=== PATIENT | female | born 1960 | race Caucasian/White ===

== ENCOUNTER 2021-11-30 18:43 | Observation (INO) ==
[2021-11-30 20:47] LABS: Basophils # (auto) 0.03 K/uL (0-0.2); Basophils % (auto) 0.3 %; Eosinophils # (auto) 0.07 K/uL (0-0.5); Eosinophils % (auto) 0.8 %; Hematocrit (blood only) 35.7 % (37-47); Hemoglobin 12.5 g/dL (12.0-16.0); Immature Granulocytes # (auto) 0.01 K/uL (0.00-0.02); Immature Granulocytes % (auto) 0.1 %; Lymphocytes # (auto) 2.77 K/uL (1.2-3.4); Lymphocytes % (auto) 30.7 %; Mean Corpuscular Hemoglobin 30.7 pg (25-34); Mean Corpuscular Volume 87.7 fL (80-100); Mean Platelet Volume 9.1 fL (7.4-10.4); Monocytes # (auto) 0.95 K/uL (0.11-0.59); Monocytes % (auto) 10.5 %; Neutrophils # (auto) 5.19 K/uL (1.4-6.5); Neutrophils % (auto) 57.6 %; Platelet Count 442 K/uL (130-400); RDW Coefficient of Variation 12.9 % (11.5-14.5); RDW Standard Deviation 42.1 fL (36.4-46.3); Red Blood Count 4.07 M/uL (4.2-5.4); White Blood Count 9.02 K/uL (4.8-10.8)
[2021-11-30 21:01] LABS: Appearance Urine Clear (Clear); Bilirubin Urine Negative (Negative); Blood Urine Negative (Negative); Color Urine Yellow; Glucose Urine UA Negative (Negative); Ketones Urine Negative (Negative); Leukocyte Esterase Urine Negative (Negative); Nitrite Urine Negative (Negative); Protein Urine Negative (Negative); Specific Gravity Urine 1.005 (1.000-1.030); Urobilinogen Urine Negative (Negative)
[2021-11-30 21:16] LABS: Albumin Globulin Ratio 1.3 (0.9-2); Albumin Level 4.4 gm/dl (3.4-5.0); BUN Creatinine Ratio 9.3 (10-20); Bilirubin,Total 0.4 mg/dl (0.2-1.0); Calcium 10.1 mg/dl (8.5-10.1); Creatinine Clr Calc Pharmacy 61.7 ml/min; Est GFR (African American) 85.1 ml/min; Est GFR (Non-African American) 73.4 ml/min; Globulin 3.4 gm/dl (2.5-4.0); Potassium 4.1 mmol/L (3.5-5.1); Total Protein 7.8 gm/dl (6.0-8.3)
[2021-11-30] MEDS ORDERED: ONDANSETRON INJ 2 MG/ML 2 ML VIAL IV STA (22:10)
[2021-11-30] MEDS ORDERED: SODIUM CHLORIDE 0.9% 1000ML 1,000 ML IV ONE (22:10)
[2021-11-30] MEDS ORDERED: DICYCLOMINE HCL 10 MG/ML 2 ML AMP/VIAL IM ONE (22:10)
[2021-11-30] MEDS ORDERED: LACTULOSE SYRUP 20 GM/30 ML UDC PO STA (22:37)
[2021-11-30] MEDS ORDERED: DOCUSATE SODIUM/SENNA 50/8.6MG TAB PO STA (22:37)
[2021-11-30 23:20] LABS: Magnesium 2.2 mg/dl (1.7-2.4)
--- NOTE | 2021-12-01 00:05 | Emergency Department Note ---
History of Present Illness General Chief complaint: Constipation Stated complaint: ABDOM PAIN, CONSTIPATION FOR 1 WEEK Time Seen by Provider: 11/30/21 22:03 History of Present Illness Maximum Pain Intensity: 4 This 61-year-old presents to the ER complaining of worsening abdominal pain who has been seen 3 times this week Location: Abdomen Quality: Painful Severity: Bloated Duration: Past week Timing: Started a week ago Context: Patient was concerned and came in Modifying factors: better with rest; worse with activity Patient states she drank part of the magnesium citrate I gave her yesterday but the abdominal pain got worse. She then called in for telehealth and was advised not to take the 80s and saturating more to try MiraLAX. She is had very little output. The pain is gotten worse. Patient denies chest pain, dyspnea, fevers, flulike illness. She had 2 CAT scans this week. Home Medications Medication Instructions Recorded Confirmed Type latanoprost 0.005 % eye drops 1 drops OPL QPM 05/24/19 11/30/21 History levothyroxine 88 mcg tablet 88 mcg PO DAILY 05/24/19 11/30/21 History Allergies Allergy/AdvReac Type Severity Reaction Status Date / Time Penicillins Allergy Verified 11/30/21 21:19 Sulfa (Sulfonamide AdvReac Hives Verified 11/30/21 21:19 Antibiotics) Past Med/Surg History Medical History History of malignant melanoma of skin Hx of glaucoma Hypothyroidism Surgical History No pertinent past surgical history Social History Smoking Status: Never smoker Preferred Language: Czech Feels Safe at Home: Yes Review of Systems A total of 10 systems reviewed and were otherwise negative Physical Exam Vital Signs Vital Signs - 24 hr 11/30/21 19:09 11/30/21 20:59 11/30/21 22:00 Temperature 36.2 C L Temperature Source Temporal Artery Scan Pulse Rate 84 Pulse Rate [Left Finger] 81 78 Pulse Rhythm Regular Pulse Strength Normal Respiratory Rate 18 18 17 Respiratory Effort / Characteristics Non-Labored Spontaneous Respiratory Depth Normal Respiratory Pattern Regular Blood Pressure 125/89 Blood Pressure [Left Arm] 141/99 H 147/81 H Blood Pressure Mean 101 Blood Pressure Mean [Left Arm] 113 103 Blood Pressure Position Sitting Pulse Oximetry 98 99 99 Oxygen Delivery Method Room Air Room Air Room Air Sepsis Recent Fever Within 48 Hours No Sepsis New/Unexplained Change in Mental Status N/A Sepsis Action Taken by Nursing No Action Required 11/30/21 23:18 12/01/21 00:59 Temperature Temperature Source Pulse Rate Pulse Rate [Left Finger] 80 74 Pulse Rhythm Pulse Strength Respiratory Rate 20 20 Respiratory Effort / Characteristics Respiratory Depth Respiratory Pattern Blood Pressure Blood Pressure [Left Arm] 147/81 H 133/86 Blood Pressure Mean Blood Pressure Mean [Left Arm] 103 101 Blood Pressure Position Pulse Oximetry 99 98 Oxygen Delivery Method Room Air Room Air Sepsis Recent Fever Within 48 Hours Sepsis New/Unexplained Change in Mental Status Sepsis Action Taken by Nursing VITALS: Vitals are noted on the nurse's note and reviewed by myself. Vital signs stable. GENERAL: Pleasant female, in no acute distress, nondiaphoretic, well-developed well-nourished. SKIN: The skin was without rashes, erythema, edema, or bruising. There is no tenting of the skin. Capillary reflex less than 2 seconds. HEAD: Normocephalic atraumatic. EARS: External auditory canals clear, EYES: Pupils equal round and reactive to light and accommodation. Conjunctivae without injection, sclerae without icterus. Extraocular movements intact. NOSE: Patent, turbinates without inflammation or discharge. MOUTH: Mucous membranes moist. Pharynx without erythema or exudate. Uvula midline. Airway patent. Tongue does not deviate. NECK: Supple without nuchal rigidity. No lymphadenopathy. No thyromegaly. Cervical spine is nontender. No JVD. HEART: Regular rate and rhythm LUNGS: Clear to auscultation bilaterally without wheezes, rales or rhonchi. No retractions or accessory muscle use. ABDOMEN: Positive bowel sounds x 4. Normal tympanic percussion. Soft, diffusely tender to palpation with increased pain left lower quadrant, without masses or organomegaly. Potter sign negative. No guarding or rebound tenderness. No CVA tenderness MUSCULOSKELETAL: No muscle atrophy, erythema, or edema noted. NEURO: Patient was alert and oriented to person place and time. Normal sensati on to light and sharp touch. No focal neurological deficits. Course Administered Medications Discontinued Medications Dicyclomine HCl (Dicyclomine Hcl 10 Mg/Ml 2 Ml Amp/Vial) 20 mg IM NOW ONE Stop: 11/30/21 22:11 Last Admin: 11/30/21 22:25 Dose: 20 mg Documented by: [id number] Sodium Chloride (Nss 1000ml) 1,000 mls @ 999 mls/hr IV .Q1H1M ONE Stop: 11/30/21 23:10 Last Infusion: 11/30/21 23:25 Dose: 0 mls/hr Documented by: [id number] Admin: 11/30/21 22:26 Dose: 999 mls/hr Documented by: [id number] Lactulose (Lactulose Syrup 20 Gm/30 Ml Udc) 30 gm PO NOW STA Stop: 11/30/21 22:38 Last Admin: 11/30/21 23:16 Dose: 30 gm Documented by: [id number] Ondansetron HCl (Ondansetron Inj 2 Mg/Ml 2 Ml Vial) 4 mg IV NOW STA Stop: 11/30/21 22:11 Last Admin: 11/30/21 22:25 Dose: 4 mg Documented by: [id number] Senna/Docusate Sodium (Docusate Sodium/Senna 50/8.6mg Tab) 1 tab PO NOW STA Stop: 11/30/21 22:38 Last Admin: 11/30/21 23:16 Dose: 1 tab Documented by: [id number] Medical Decision Making Medical Records Attestation: I reviewed the patient's medical records. Home Medications Current Medication List: was personally reviewed by me Laboratory Data Attestation: I reviewed the patient's lab results. Result diagrams: 11/30/21 20:25 11/30/21 20:25 Lab Results 11/30/21 11/30/21 11/30/21 Range/Units 19:52 20:25 20:25 WBC 9.02 (4.8-10.8) K/uL RBC 4.07 L (4.2-5.4) M/uL Hgb 12.5 (12.0-16.0) g/dL Hct 35.7 L (37-47) % MCV 87.7 (80-100) fL MCH 30.7 (25-34) pg MCHC 35.0 (32-36) g/dL RDW Std Deviation 42.1 (36.4-46.3) fL RDW Coeff of Nahid 12.9 (11.5-14.5) % Plt Count 442 H (130-400) K/uL MPV 9.1 (7.4-10.4) fL Immature Gran % (Auto) 0.1 % Neut % (Auto) 57.6 % Lymph % (Auto) 30.7 % [place] % (Auto) 10.5 % Eos % (Auto) 0.8 % Baso % (Auto) 0.3 % Neut # (Auto) 5.19 (1.4-6.5) K/uL Lymph # (Auto) 2.77 (1.2-3.4) K/uL [place] # (Auto) 0.95 H (0.11-0.59) K/uL Eos # (Auto) 0.07 (0-0.5) K/uL Baso # (Auto) 0.03 (0-0.2) K/uL Immature Gran # (Auto) 0.01 (0.00-0.02) K/uL Sodium 133 L (136-145) mmol/L Potassium 4.1 (3.5-5.1) mmol/L Chloride 97 L (98-107) mmol/L Carbon Dioxide 26 (21-32) mmol/L Anion Gap 10 (3-11) BUN 8 (6-23) mg/dl Creatinine 0.86 (0.6-1.2) mg/dl Est Cr Clr Drug Dosing 61.7 ml/min Est GFR ( Amer) 85.1 ml/min Est GFR (Non-Af Amer) 73.4 ml/min BUN/Creatinine Ratio 9.3 L (10-20) Glucose 92 (70-99(Fasting)) mg/dl Calcium 10.1 (8.5-10.1) mg/dl Magnesium 2.2 (1.7-2.4) mg/dl Total Bilirubin 0.4 (0.2-1.0) mg/dl AST 12 L (13-39) U/L ALT 11 (7-52) U/L Alkaline Phosphatase 112 H (34-104) U/L Total Protein 7.8 (6.0-8.3) gm/dl Albumin 4.4 (3.4-5.0) gm/dl Globulin 3.4 (2.5-4.0) gm/dl Albumin/Globulin Ratio 1.3 (0.9-2) Lipase 8 L (11-82) U/L Urine Color Yellow Urine Appearance Clear (Clear) Urine pH 5.0 (4.5-7.5) Ur Specific [place] 1.005 (1.000-1.030) Urine Protein Negative (Negative) Urine Glucose (UA) Negative (Negative) Urine Ketones Negative (Negative) Urine Blood Negative (Negative) Urine Nitrite Negative (Negative) Urine Bilirubin Negative (Negative) Urine Urobilinogen Negative (Negative) Ur Leukocyte Esterase Negative (Negative) SARS-CoV-2, RNA, NAAT (NEGATIVE) 11/30/21 Range/Units 22:36 WBC (4.8-10.8) K/uL RBC (4.2-5.4) M/uL Hgb (12.0-16.0) g/dL Hct (37-47) % MCV (80-100) fL MCH (25-34) pg MCHC (32-36) g/dL RDW Std Deviation (36.4-46.3) fL RDW Coeff of Nahid (11.5-14.5) % Plt Count (130-400) K/uL MPV (7.4-10.4) fL Immature Gran % (Auto) % Neut % (Auto) % Lymph % (Auto) % [place] % (Auto) % Eos % (Auto) % Baso % (Auto) % Neut # (Auto) (1.4-6.5) K/uL Lymph # (Auto) (1.2-3.4) K/uL [place] # (Auto) (0.11-0.59) K/uL Eos # (Auto) (0-0.5) K/uL Baso # (Auto) (0-0.2) K/uL Immature Gran # (Auto) (0.00-0.02) K/uL Sodium (136-145) mmol/L Potassium (3.5-5.1) mmol/L Chloride (98-107) mmol/L Carbon Dioxide (21-32) mmol/L Anion Gap (3-11) BUN (6-23) mg/dl Creatinine (0.6-1.2) mg/dl Est Cr Clr Drug Dosing ml/min Est GFR ( Amer) ml/min Est GFR (Non-Af Amer) ml/min BUN/Creatinine Ratio (10-20) Glucose (70-99(Fasting)) mg/dl Calcium (8.5-10.1) mg/dl Magnesium (1.7-2.4) mg/dl Total Bilirubin (0.2-1.0) mg/dl AST (13-39) U/L ALT (7-52) U/L Alkaline Phosphatase (34-104) U/L Total Protein (6.0-8.3) gm/dl Albumin (3.4-5.0) gm/dl Globulin (2.5-4.0) gm/dl Albumin/Globulin Ratio (0.9-2) Lipase (11-82) U/L Urine Color Urine Appearance (Clear) Urine pH (4.5-7.5) Ur Specific [place] (1.000-1.030) Urine Protein (Negative) Urine Glucose (UA) (Negative) Urine Ketones (Negative) Urine Blood (Negative) Urine Nitrite (Negative) Urine Bilirubin (Negative) Urine Urobilinogen (Negative) Ur Leukocyte Esterase (Negative) SARS-CoV-2, RNA, NAAT NEGATIVE (NEGATIVE) Imaging Data Attestation: I personally reviewed and interpreted this imaging study as follows: Radiologist's Impression: Renal Ultrasound 11/30/21 22:12 ULTRASOUND KIDNEYS AND BLADDER CLINICAL HISTORY: Left lower quadrant abdominal pain. COMPARISON STUDY: Abdominal CT dated 11/29/2021. TECHNIQUE: Real-time, grayscale, and color flow sonography of the kidneys and bladder is performed. Images are reviewed in the transverse and longitudinal pl anes. FINDINGS: Kidneys: The kidneys are normal in size and echotexture. The right kidney measures 10.2 x 4.0 x 4.3 cm and the left kidney measures 10.7 x 4.5 x 5.2 cm. There is no hydronephrosis. No shadowing renal calculi are identified. There is no sonographic evidence of contour deforming renal mass lesion. No perinephric fluid is identified. Bladder: The bladder is normal in appearance. Bilateral ureteral jets were seen. IMPRESSION: Unremarkable sonographic assessment of the kidneys and bladder. ACT 112: Negative or not required by law. Electronically signed by: Nash Beltre M.D. 12/01/2021 12:21 AM [facility] Narrative Prior records/ancillary studies reviewed. Triage Nursing notes reviewed. Additional history obtained from nursing. The patient's history was concerning for abdominal pain. Differential diagnosis: Etiologies such as appendicitis, diverticulitis, PUD, biliary pathology, UTI, pancreatitis, obstruction, mesenteric ischemia, aortic pathology, infections, i nflammatory bowel disease, renal colic, as well as others were entertained. Physical examination findings: As above. ER treatment provided: An order was placed for continuous cardiac monitoring. The monitor shows a rate of 60-100 with a sinus rhythm. Fluids Tylenol Bentyl On reassessment the patient felt better. Diagnostics interpreted by me: The labs revealed no worrisome leukocytosis Negative urine Imaging studies: As above Consultation: A consultation was placed with the hospitalist. The case was discussed and diagnostics were reviewed. The patient was evaluated in the ER for further treatment. Exam and history seem consistent with showing worsening abdominal pain. Patient would like to stay for admission. Medicine was consulted. She will be admitted. She had 2 CAT scans this week that were negative. Ultrasound was negative. Stable labs. I felt was reasonable not to repeat the CAT scan for the third time. By the evaluation outlined above emergent etiologies such as appendicitis, diverticulitis, PUD, biliary pathology, UTI, pancreatitis, obstruction, mesenteric ischemia, aortic pathology, infections, inflammatory bowel disease, renal colic, as well as others were deemed relatively unlikely. The pt informed about the findings as listed above. All questions were answered and pleased with the treatment. The chart was completed utilizing [employer] Speech voice recognition software. Grammatical errors, random word insertions, pronoun errors, and incomplete sentences are an occassional consequence of this system due to software limitati ons, ambient noise, and hardware issues. Any formal questions or concerns about the content, text, or information contained within the body of this dictation should be directly addressed to the physician training program assistant for clarification. Impression & Plan Acute abdominal pain Discharge Plan Visit Data Chief Complaint: Constipation Stated Complaint: ABDOM PAIN, CONSTIPATION FOR 1 WEEK ED Provider: Rick Henson ED Midlevel Provider: Jasmyne Mendiola Discharge Problem: Acute abdominal pain Patient Disposition: Admitted As Inpatient Condition: Good Forms Stand Alone Forms: My [employer] Prescriptions Prescriptions: No Action levothyroxine 88 mcg tablet 88 mcg PO DAILY RF: 0 latanoprost 0.005 % drops 1 drops OPL QPM RF: 0 Referrals Referrals: Herson Sullivan MD [Primary Care Provider] -
--- NOTE | 2021-12-01 00:23 | Ultrasound Report ---
ULTRASOUND KIDNEYS AND BLADDER CLINICAL HISTORY: Left lower quadrant abdominal pain. COMPARISON STUDY: Abdominal CT dated 11/29/2021. TECHNIQUE: Real-time, grayscale, and color flow sonography of the kidneys and bladder is performed. I mages are reviewed in the transverse and longitudinal planes. FINDINGS: Kidneys: The kidneys are normal in size and echotexture. The right kidney measures 10.2 x 4.0 x 4.3 c m and the left kidney measures 10.7 x 4.5 x 5.2 cm. There is no hydronephrosis. No shadowing renal c alculi are identified. There is no sonographic evidence of contour deforming renal mass lesion. No pe rinephric fluid is identified. Bladder: The bladder is normal in appearance. Bilateral ureteral jets were seen. IMPRESSION: Unremarkable sonographic assessment of the kidneys and bladder. ACT 112: Negative or not required by law. Electronically signed by: Nash Beltre M.D. 12/01/2021 12:21 AM
[2021-12-01] MEDS ORDERED: LORazepam 2 MG/1 ML VIAL IV STA (01:00)
--- NOTE | 2021-12-01 01:02 | History & Physical Report ---
Date of Service December 01, 2021 Assessment & Plan (1) Abdominal pain: Plan: With constipation symptoms. Patient nontoxic. hypothyroidism, euthyroid as of recent outpatient TSH malignant melanoma status post surgery, in remission for years now OBS GMF Analgesia/avoid narcotics Attempt manual fecal disimpaction. Bowel regimen GI consult if without improvement. DVT prophylaxis per Lovenox subcu Full code Text document was generated using [employer] voice recognition software. It may contain grammatical or spelling errors. Kindly contact undersigned for clarification of any documentation item in question. History of Present Illness Chief Complaint: Abdominal pain, constipation Primary Care Provider: Herson Sullivan MD History obtained from patient and records. Medical history significant for hypothyroidism, migraine, malignant melanoma status post surgery. 5 days ago, patient noted achy left-sided abdominal pain associated with constipation symptoms. Just water as per patient. No fever, no chills. No chest pain, no SOB. Recent antibiotic Rx for UTI. Has never happened before no unusual weight loss. No response to outpatient laxatives. Patient seen at PCPs office [address] abdomen pelvis without acute findings. Patient consulted ER 2 days ago for worsening symptoms. Nonspecific fecal debris noted in the colon. Patient discharged home with bowel regimen instructions. Patient returned to ER for worsening and intractable symptoms. Medical History as above 2017 normal colonoscopy Surgical History : Melanoma excision, dental surgery Family History : Breast cancer, dementia, colon cancer Personal/Social history : Non-smoker, occasional EtOH intake, secretarial work Allergies Allergy/AdvReac Type Severity Reaction Status Date / Time Penicillins Allergy Verified 11/30/21 21:19 Sulfa (Sulfonamide AdvReac Hives Verified 11/30/21 21:19 Antibiotics) Home Medications Medication Instructions Recorded Confirmed Type latanoprost 0.005 % eye drops 1 drops OPL QPM 05/24/19 11/30/21 History levothyroxine 88 mcg tablet 88 mcg PO DAILY 05/24/19 11/30/21 History Past Med/Surg History Medical History History of malignant melanoma of skin Hx of glaucoma Hypothyroidism Surgical History No pertinent past surgical history Social History Smoking Status: Never smoker Hx Alcohol Use: Yes Hx Substance Use: No Preferred Language: Australian Communication Ability: Effective Nursery Technician Required: No Beliefs That Will Affect Care: None Current Living Situation: Spouse Feels Safe at Home: Yes Assistive Devices: None Review of Systems Review of Systems: As per HPI, all other systems reviewed and negative Physical Exam Physical Exam: GENERAL: uncomfortable, slightly anxious, no respiratory distress SKIN: Normal color, warm HEENT: [place] palpebral conjunctivae, no ptosis, dry buccal mucosa NECK : Supple, no tenderness CHEST : CTA, no tenderness HEART : RRR, no obvious murmurs ABDOMEN: Some distention, left-sided abdominal tenderness EXTREMITIES : No LE swelling/tenderness, no other conspicuous deformities noted NEUROLOGIC : Coherent, no facial asymmetry, no other gross focality Results & Data Results & [facility] ([facility] Vital Signs (Past 12 Hours) Vital Signs Temp Pulse Pulse Resp BP BP Pulse Ox 12/01/21 00:59 74 20 133/86 98 11/30/21 23:18 80 20 147/81 H 99 11/30/21 22:00 78 17 147/81 H 99 11/30/21 20:59 81 18 141/99 H 99 11/30/21 19:09 36.2 C L 84 18 125/89 98 Laboratory Results Laboratory Results WBC 9.02 K/uL (4.8-10.8) 11/30/21 20:25 RBC 4.07 M/uL (4.2-5.4) L 11/30/21 20:25 Hgb 12.5 g/dL (12.0-16.0) 11/30/21 20:25 Hct 35.7 % (37-47) L 11/30/21 20:25 MCV 87.7 fL (80-100) 11/30/21 20:25 MCH 30.7 pg (25-34) 11/30/21 20:25 MCHC 35.0 g/dL (32-36) 11/30/21 20:25 RDW Std Deviation 42.1 fL (36.4-46.3) 11/30/21 20:25 RDW Coeff of Nahid 12.9 % (11.5-14.5) 11/30/21 20:25 Plt Count 442 K/uL (130-400) H 11/30/21 20:25 MPV 9.1 fL (7.4-10.4) 11/30/21 20:25 Immature Gran % (Auto) 0.1 % 11/30/21 20:25 Neut % (Auto) 57.6 % 11/30/21 20:25 Lymph % (Auto) 30.7 % 11/30/21 20:25 [place] % (Auto) 10.5 % 11/30/21 20:25 Eos % (Auto) 0.8 % 11/30/21 20:25 Baso % (Auto) 0.3 % 11/30/21 20:25 Neut # (Auto) 5.19 K/uL (1.4-6.5) 11/30/21 20: Lymph # (Auto) 2.77 K/uL (1.2-3.4) 11/30/21 20:25 [place] # (Auto) 0.95 K/uL (0.11-0.59) H 11/30/21 20:25 Eos # (Auto) 0.07 K/uL (0-0.5) 11/30/21 20:25 Baso # (Auto) 0.03 K/uL (0-0.2) 11/30/21 20:25 Immature Gran # (Auto) 0.01 K/uL (0.00-0.02) 11/30/21 20:25 Sodium 133 mmol/L (136-145) L 11/30/21 20:25 Potassium 4.1 mmol/L (3.5-5.1) 11/30/21 20:25 Chloride 97 mmol/L (98-107) L 11/30/21 20:25 Carbon Dioxide 26 mmol/L (21-32) 11/30/21 20:25 Anion Gap 10 (3-11) 11/30/21 20:25 BUN 8 mg/dl (6-23) 11/30/21 20:25 Creatinine 0.86 mg/dl (0.6-1.2) 11/30/21 20:25 Est Cr Clr Drug Dosing 61.7 ml/min 11/30/21 20:25 Est GFR ( Amer) 85.1 ml/min 11/30/21 20:25 Est GFR (Non-Af Amer) 73.4 ml/min 11/30/21 20:25 BUN/Creatinine Ratio 9.3 (10-20) L 11/30/21 20:25 Glucose 92 mg/dl (70-99(Fasting)) 11/30/21 20:25 Calcium 10.1 mg/dl (8.5-10.1) 11/30/21 20:25 Magnesium 2.2 mg/dl (1.7-2.4) 11/30/21 20:25 Total Bilirubin 0.4 mg/dl (0.2-1.0) 11/30/21 20:25 AST 12 U/L (13-39) L 11/30/21 20:25 ALT 11 U/L (7-52) 11/30/21 20:25 Alkaline Phosphatase 112 U/L (34-104) H 11/30/21 20:25 Total Protein 7.8 gm/dl (6.0-8.3) 11/30/21 20:25 Albumin 4.4 gm/dl (3.4-5.0) 11/30/21 20:25 Globulin 3.4 gm/dl (2.5-4.0) 11/30/21 20:25 Albumin/Globulin Ratio 1.3 (0.9-2) 11/30/21 20:25 Lipase 8 U/L (11-82) L 11/30/21 20:25 Urine Color Yellow 11/30/21 19:52 Urine Appearance Clear (Clear) 11/30/21 19:52 Urine pH 5.0 (4.5-7.5) 11/30/21 19:52 Ur Specific [place] 1.005 (1.000-1.030) 11/30/21 19:52 Urine Protein Negative (Negative) 11/30/21 19:52 Urine Glucose (UA) Negative (Negative) 11/30/21 19:52 Urine Ketones Negative (Negative) 11/30/21 19:52 Urine Blood Negative (Negative) 11/30/21 19:52 Urine Nitrite Negative (Negative) 11/30/21 19:52 Urine Bilirubin Negative (Negative) 11/30/21 19:52 Urine Urobilinogen Negative (Negative) 11/30/21 19:52 Ur Leukocyte Esterase Negative (Negative) 11/30/21 19:52 SARS-CoV-2, RNA, NAAT NEGATIVE (NEGATIVE) 11/30/21 22:36 Impressions Renal Ultrasound 11/30/21 22:12 ULTRASOUND KIDNEYS AND BLADDER CLINICAL HISTORY: Left lower quadrant abdominal pain. COMPARISON STUDY: Abdominal CT dated 11/29/2021. TECHNIQUE: Real-time, grayscale, and color flow sonography of the kidneys and bladder is performed. Images are reviewed in the transverse and longitudinal planes. FINDINGS: Kidneys: The kidneys are normal in size and echotexture. The right kidney measures 10.2 x 4.0 x 4.3 cm and the left kidney measures 10.7 x 4.5 x 5.2 cm. There is no hydronephrosis. No shadowing renal calculi are identified. There is no sonographic evidence of contour deforming renal mass lesion. No perinephric fluid is identified. Bladder: The bladder is normal in appearance. Bilateral ureteral jets were seen. IMPRESSION: Unremarkable sonographic assessment of the kidneys and bladder. ACT 112: Negative or not required by law. Electronically signed by: Nash Beltre M.D. 12/01/2021 12:21 AM (1) Abdominal pain Abdominal location: left lower quadrant Qualified Code(s): R10.32 - Left lower quadrant pain
[2021-12-01] MEDS ORDERED: KETOROLAC TROMETHAMINE 15 MG/ML VIAL IV STA (01:17)
[2021-12-01] MEDS ORDERED: POLYETHYLENE (MIRALAX) 17 GM PACK PO PRN (01:58)
[2021-12-01] MEDS ORDERED: KETOROLAC TROMETHAMINE 15 MG/ML VIAL IV PRN (01:58)
[2021-12-01] MEDS ORDERED: SODIUM CHLORIDE 0.9% 1000ML 1,000 ML IV ONE ×2 (01:58→16:36)
[2021-12-01] MEDS ORDERED: LORazepam 2 MG/1 ML VIAL IV PRN (01:58)
[2021-12-01] MEDS ORDERED: PROMETHAZINE HCL 12.5 MG in SODIUM CHLORIDE 0.9% 50 ML IV PRN (01:58)
[2021-12-01] MEDS ORDERED: LACTULOSE SYRUP 30 GM/45 ML UDP PO STA (03:30)
[2021-12-01] MEDS: LEVOTHYROXINE SODIUM 88 MCG TABLET PO SCH (05:10)
[2021-12-01 06:21] LABS: Basophils # (auto) 0.02 K/uL (0-0.2); Basophils % (auto) 0.3 %; Eosinophils # (auto) 0.04 K/uL (0-0.5); Eosinophils % (auto) 0.6 %; Hematocrit (blood only) 33.4 % (37-47); Hemoglobin 11.8 g/dL (12.0-16.0); Immature Granulocytes # (auto) 0.02 K/uL (0.00-0.02); Immature Granulocytes % (auto) 0.3 %; Lymphocytes # (auto) 1.91 K/uL (1.2-3.4); Lymphocytes % (auto) 27.6 %; Mean Corpuscular Hemoglobin 30.6 pg (25-34); Mean Corpuscular Hgb Conc 35.3 g/dL (32-36); Mean Corpuscular Volume 86.5 fL (80-100); Mean Platelet Volume 9.1 fL (7.4-10.4); Monocytes # (auto) 0.65 K/uL (0.11-0.59); Monocytes % (auto) 9.4 %; Neutrophils # (auto) 4.28 K/uL (1.4-6.5); Neutrophils % (auto) 61.8 %; Platelet Count 408 K/uL (130-400); RDW Coefficient of Variation 12.9 % (11.5-14.5); RDW Standard Deviation 41.3 fL (36.4-46.3); Red Blood Count 3.86 M/uL (4.2-5.4); White Blood Count 6.92 K/uL (4.8-10.8)
[2021-12-01 06:43] LABS: BUN Creatinine Ratio 7.9 (10-20); Est GFR (African American) 98.8 ml/min; Est GFR (Non-African American) 85.3 ml/min; Potassium 3.4 mmol/L (3.5-5.1)
[2021-12-01] MEDS: ENOXAPARIN INJ 40 MG/0.4 ML SYR SQ SCH (08:29)
[2021-12-01] MEDS: DOCUSATE SODIUM/SENNA 50/8.6MG TAB PO SCH ×2 (08:30→20:01)
[2021-12-01] MEDS ORDERED: POTASSIUM CHLORIDE CRTAB 20 MEQ TABCR PO ONE (09:00)
[2021-12-01] MEDS: POLYETHYLENE (MIRALAX) 17 GM PACK PO SCH (09:59)
--- NOTE | 2021-12-01 13:18 | XRay Report ---
KUB HISTORY: Acute generalized abdominal pain with constipation constipation COMPARISON: CT abdomen and pelvis 11/29/2021 FINDINGS: Nonobstructive bowel gas pattern. Colonic stool volume is mild and within normal limits. Un changed left pelvic basin phlebolith. No renal calculi. No ureteral calculi. No pneumoperitoneum or pneumatosis. Mild lumbar levoscoliosis. No fracture. IMPRESSION: Nonobstructive bowel gas pattern. ACT 112: Negative or not required by law. The above report was generated using voice recognition software. It may contain grammatical, syntax o r spelling errors. Electronically signed by: Lele Ghosh M.D. 12/01/2021 1:17 PM
--- NOTE | 2021-12-01 14:46 | Hospitalist Progress Note ---
Date of Service December 01, 2021 Assessment & Plan (1) Abdominal pain: Plan: Constipation --CT ABD from 11/29/21:No bowel obstruction. No bowel wall thickening. Normal appendix. Slight asymmetric decreased enhancement of the upper pole of the left kidney. This is of uncertain significance and etiology. Findings could be correlated with urinalysis to exclude an infectious process or recently passed calculus. No hydronephrosis. No urinary calculi. --KUB:Nonobstructive bowel gas pattern. -- Abdominal pain resolved Received IV fluids Encouraged to ambulate Continue bowel regimen Plan for colonoscopy in November as outpatient Advised to follow-up with gastroenterology as outpatient Stool studies pending Patient prefers to be discharged home today if stool studies are negative. Hepatic lesions: Incidental finding on CT --CT ABD:Innumerable hypodense hepatic lesions are present. The largest is a 4.1 cm right hepatic dome lesion. This represents a cyst. The smaller lesions could reflect cysts or biliary hamartomas. There is no biliary or pancreatic ductal dilatation. The spleen, adrenal glands and pancreas are unremarkable. -- Advised to follow-up with gastroenterology as outpatient Hypothyroidism Continue levothyroxine Malignant melanoma S/P surgery DVT Px: Lovenox SQ Code Status Full code Admission and Anticipated Discharge Date Admission Date: December 01, 2021 Subjective Patient is seen and examined at bedside Doing well today Abdominal pain resolved Had small liquid bowel movements Denies any chest pain, dyspnea, dizziness, nausea, vomiting Offers no other complaints Review of Systems Review of Systems: All systems reviewed & are unremarkable except as noted in Subjective Physical Exam Physical Exam: Physical Exam: Vitals signs as noted above General Appearance:Moderately built and nourished, no apparent distress Head: normocephalic, Atraumatic Eyes: normal inspection, EOMI Neck: supple, Trachea midline Respiratory/Chest: Normal breath sounds, CTA, No accessory muscle use Cardiovascular: S1, S2, No murmur Abdomen/GI:Soft, Non tender, Bowel sounds present Extremities/Musculoskeletal:normal inspection, no edema Neurologic/Psych:AAOX3, grossly no focal neurological deficits Skin: normal color, warm Results & Data Results & Data ([facility]) Laboratory Results Short CBC 11/30/21 12/01/21 Range/Units 20:25 05:30 WBC 9.02 6.92 (4.8-10.8) K/uL Hgb 12.5 11.8 L (12.0-16.0) g/dL Hct 35.7 L 33.4 L (37-47) % Plt Count 442 H 408 H (130-400) K/uL BMP 11/30/21 12/01/21 20:25 05:30 Sodium 133 L 135 L Potassium 4.1 3.4 L Chloride 97 L 103 Carbon Dioxide 26 22 BUN 8 6 Creatinine 0.86 0.76 Glucose 92 109 H Calcium 10.1 9.0 Liver Function 11/30/21 Range/Units 20:25 Total Bilirubin 0.4 (0.2-1.0) mg/dl AST 12 L (13-39) U/L ALT 11 (7-52) U/L Alkaline Phosphatase 112 H (34-104) U/L Albumin 4.4 (3.4-5.0) gm/dl Urine 11/30/21 Range/Units 19:52 Urine Color Yellow Urine Appearance Clear (Clear) Urine pH 5.0 (4.5-7.5) Ur Specific [place] 1.005 (1.000-1.030) Urine Protein Negative (Negative) Urine Glucose (UA) Negative (Negative) (1) Abdominal pain Abdominal location: left lower quadrant Qualified Code(s): R10.32 - Left lower quadrant pain
[2021-12-01 15:20] LABS: Adenovirus F 40/41 PCR Not Detected (NotDetected); Astrovirus PCR Not Detected (NotDetected); Campylobacter PCR Not Detected (NotDetected); Clostridium diff Toxin A/B PCR Not Detected (NotDetected); Cryptosporidium PCR Not Detected (NotDetected); Cyclospora cayetanensis PCR Not Detected (NotDetected); Entamoeba histolytica PCR Not Detected (NotDetected); Enteroaggregative E.coli(EAEC) Not Detected (NotDetected); Enteropathogenic E.coli (EPEC) Not Detected (NotDetected); Enterotoxigenic E.coli (ETEC) Not Detected (NotDetected); Giardia lamblia PCR Not Detected (NotDetected); Norovirus GI/GII PCR Not Detected (NotDetected); Plesiomonas shigelloides PCR Not Detected (NotDetected); Rotavirus A PCR Not Detected (NotDetected); Salmonella PCR Not Detected (NotDetected); Sapovirus PCR Not Detected (NotDetected); Shiga-like Toxin E.coli (STEC) Not Detected (NotDetected); Shigella/Enteroinvasive E.coli Not Detected (NotDetected); Vibrio cholerae PCR Not Detected (NotDetected); Vibrio species PCR Not Detected (NotDetected); Yersinia enterocolitica PCR Not Detected (NotDetected)
[2021-12-01] MEDS ORDERED: LATANOPROST 0.005% OP SOLN 2.5 ML BTL OPL SCH (21:00)
[2021-12-01] MEDS: ACETAMINOPHEN 325 MG TAB PO PRN (23:17)
[2021-12-02] MEDS: LEVOTHYROXINE SODIUM 88 MCG TABLET PO SCH (05:30)
[2021-12-02] MEDS: ACETAMINOPHEN 325 MG TAB PO PRN (05:32)
[2021-12-02 07:50] LABS: Calcium 9.2 mg/dl (8.5-10.1); Creatinine Clr Calc Pharmacy 68.3 ml/min; Est GFR (African American) 95.8 ml/min; Est GFR (Non-African American) 82.6 ml/min
[2021-12-02] MEDS: POLYETHYLENE (MIRALAX) 17 GM PACK PO SCH (07:54)
[2021-12-02] MEDS: ENOXAPARIN INJ 40 MG/0.4 ML SYR SQ SCH (07:54)
[2021-12-02] MEDS: DOCUSATE SODIUM/SENNA 50/8.6MG TAB PO SCH (07:55)
--- NOTE | 2021-12-02 12:42 | Hospitalist Progress Note ---
Date of Service December 02, 2021 Assessment & Plan (1) Abdominal pain: Plan: Constipation --CT ABD from 11/29/21:No bowel obstruction. No bowel wall thickening. Normal appendix. Slight asymmetric decreased enhancement of the upper pole of the left kidney. This is of uncertain significance and etiology. Findings could be correlated with urinalysis to exclude an infectious process or recently passed calculus. No hydronephrosis. No urinary calculi. --KUB:Nonobstructive bowel gas pattern. -- Abdominal pain resolved Received IV fluids Encouraged to ambulate Continue bowel regimen Plan for colonoscopy in November as outpatient Advised to follow-up with gastroenterology as outpatient Stool studies Negative Constipation resolved Hepatic lesions: Incidental finding on CT --CT ABD:Innumerable hypodense hepatic lesions are present. The largest is a 4.1 cm right hepatic dome lesion. This represents a cyst. The smaller lesions could reflect cysts or biliary hamartomas. There is no biliary or pancreatic ductal dilatation. The spleen, adrenal glands and pancreas are unremarkable. -- Advised to follow-up with gastroenterology as outpatient. Agrees with Plan. Hypothyroidism Continue levothyroxine Malignant melanoma S/P surgery DVT Px: Lovenox SQ Code Status Full code Admission and Anticipated Discharge Date Admission Date: December 01, 2021 Subjective Patient is seen and examined at bedside Had 3 BMs today No recurrence of Abdominal pain Tolerated diet Denies any chest pain, dyspnea, dizziness, nausea, vomiting Review of Systems Review of Systems: All systems reviewed & are unremarkable except as noted in Subjective Physical Exam Physical Exam: Physical Exam: Vitals signs as noted above General Appearance:Moderately built and nourished, no apparent distress Head: normocephalic, Atraumatic Eyes: normal inspection, EOMI Neck: supple, Trachea midline Respiratory/Chest: Normal breath sounds, CTA, No accessory muscle use Cardiovascular: S1, S2, No murmur Abdomen/GI:Soft, Non tender, Bowel sounds present Extremities/Musculoskeletal:normal inspection, no edema Neurologic/Psych:AAOX3, grossly no focal neurological deficits Skin: normal color, warm Results & Data Results & Data ([facility]) Vital Signs (Past 12 Hours) Vital Signs Temp Pulse Resp BP Pulse Ox 12/02/21 07:42 37.1 C 66 18 146/90 H 96 12/02/21 04:00 36.9 C 54 L 20 136/81 99 Laboratory Results BMP 12/02/21 06:52 Sodium 137 Potassium 4.0 Chloride 106 Carbon Dioxide 25 BUN 7 Creatinine 0.78 Glucose 100 H Calcium 9.2 (1) Abdominal pain Abdominal location: left lower quadrant Qualified Code(s): R10.32 - Left lower quadrant pain
--- NOTE | 2021-12-02 12:54 | Discharge Summary ---
Date of Service December 02, 2021 Admission HPI Per Admitting Provider History obtained from patient and records. Medical history significant for hypothyroidism, migraine, malignant melanoma status post surgery. 5 days ago, patient noted achy left-sided abdominal pain associated with const ipation symptoms. Just water as per patient. No fever, no chills. No chest pain, no SOB. Recent antibiotic Rx for UTI. Has never happened before no unusual weight loss. No response to outpatient laxatives. Patient seen at PCPs office [address] abdomen pelvis without acute findings. Patient consulted ER 2 days ago for worsening symptoms. Nonspecific fecal debris noted in the colon. Patient discharged home with bowel regimen instructions. Patient returned to ER for worsening and intractable symptoms. Medical History as above 2017 normal colonoscopy Surgical History : Melanoma excision, dental surgery Family History : Breast cancer, dementia, colon cancer Personal/Social history : Non-smoker, occasional EtOH intake, secretarial work Admission Exam Per Admitting Provider Physical Exam Physical Exam: GENERAL: uncomfortable, slightly anxious, no respiratory distress SKIN: Normal color, warm HEENT: [place] palpebral conjunctivae, no ptosis, dry buccal mucosa NECK : Supple, no tenderness CHEST : CTA, no tenderness HEART : RRR, no obvious murmurs ABDOMEN: Some distention, left-sided abdominal tenderness EXTREMITIES : No LE swelling/tenderness, no other conspicuous deformities noted NEUROLOGIC : Coherent, no facial asymmetry, no other gross focality Principal Diagnosis Constipation Liver Lesions Discharge Data Allergies Allergy/AdvReac Type Severity Reaction Status Date / Time Penicillins Allergy Verified 11/30/21 21:19 Sulfa (Sulfonamide AdvReac Hives Verified 11/30/21 21:19 Antibiotics) Consultations 11/30/21 22:26 ED Decision to Admit Stat Ordered Studies 11/30/21 22:12 US renal/blad retro comp Stat Hospital Course (1) Abdominal pain: Constipation --CT ABD from 11/29/21:No bowel obstruction. No bowel wall thickening. Normal appendix. Slight asymmetric decreased enhancement of the upper pole of the left kidney. This is of uncertain significance and etiology. Findings could be correlated with urinalysis to exclude an infectious process or recently passed calculus. No hydronephrosis. No urinary calculi. --KUB:Nonobstructive bowel gas pattern. -- Abdominal pain resolved Received IV fluids Encouraged to ambulate Continue bowel regimen Plan for colonoscopy in November as outpatient Advised to follow-up with gastroenterology as outpatient Stool studies Negative Constipation resolved Hepatic lesions: Incidental finding on CT --CT ABD:Innumerable hypodense hepatic lesions are present. The largest is a 4.1 cm right hepatic dome lesion. This represents a cyst. The smaller lesions could reflect cysts or biliary hamartomas. There is no biliary or pancreatic ductal dilatation. The spleen, adrenal glands and pancreas are unremarkable. -- Advised to follow-up with gastroenterology as outpatient. Agrees with Plan. Hypothyroidism Continue levothyroxine Malignant melanoma S/P surgery DVT Px: Lovenox SQ Code Status Full code Total Time Total Time Spent Total Time Spent (In Minutes): 45 minutes Discharge Plan Discharge Items Patient Disposition: Home - Self-Care Reason For Visit: ABD PAIN Discharge Diagnosis: Constipation Liver Lesions Condition on Discharge: Good Activity: Per Instructions section Exercise/Sports: Gradually increase as tolerated Non-emergency contact: Primary Care Provider and Astrochemist Call non-emergency contact if: you have any medication questions, your symptoms worsen, your pain is concerning for you and you have a fever Follow-up/Referrals: Herson Sullivan MD [Primary Care Provider] - Diet: Regular Addtl Attending Provider Instructions: Follow-up with your primary care physician Dr. Sullivan in 1 week Follow-up with your hand wrapper operator for colonoscopy as scheduled and also for further evaluation of liver lesions as advised Seek immediate medical attention if your symptoms reoccur or worsen Please take all medications as instructed on discharge list below. Please call if you have any questions or problems. You can reach a [facility] hospitalist on duty at [facility] 24 hours a day by calling [phone] Pending Studies at Discharge: No Stand-Alone Forms: My [facility], Smoking Cessation Medications and DC Order Prescriptions: New polyethylene glycol 3350 [Miralax] 17 gram Powder In Packet 17 g PO DAILY PRN (Reason: constipation) Qty: 30 RF: 0 sennosides-docusate sodium [Senokot-S] 8.6-50 mg Tablet 1 tab PO BID PRN (Reason: constipation) Qty: 60 RF: 0 Continued levothyroxine 88 mcg tablet 88 mcg PO DAILY RF: 0 latanoprost 0.005 % drops 1 drops OPL QPM RF: 0 Discharge Orders: Discharge Order (Routine); Ordered 12/02/21 Ordered By: Justen Concepcion Admission Data Admit Date/Time: 12/01/21 01:03 Attending Provider: Justen Concepcion Admit Provider: Ismael Herrera Primary Care Provider: Herson Sullivan Other Providers: Ismael Herrera
== END 2021-12-02 15:33 | disposition home or self-care (01) ==
LOC: ED 18:43 → 2N 18:43